=== PATIENT | female | born 1955 | race African-American/Black ===

== ENCOUNTER 2018-01-30 10:40 | Day surgery (SDC) | payer OTHER ==
[2018-01-29 11:31] VITALS: BMI 33.7
--- NOTE | 2018-01-30 06:09 | HP ---
DATE OF ADMISSION: 01/30/2018 HISTORY OF PRESENT ILLNESS: This is a 62-year-old female who comes for a colonoscopy for colon cance r screening. The patient has no specific GI symptoms. There is no family history of colon cancer, b ut however, her mother had and had chemotherapy. ALLERGIES: None. SOCIAL HISTORY: The patient does not smoke or drink alcohol. MEDICAL ILLNESSES: 1. Hypertension. 2. Hyperlipidemia. 3. Osteoporosis. 4. . 5. Tubal ligation. 6. Cholecystectomy. PHYSICAL EXAMINATION: VITAL SIGNS: Pulse is 70, blood pressure 130/70. HEENT: Conjunctivae clear. CARDIOVASCULAR: First and second heart sounds normal. LUNGS: Clear to auscultation. ABDOMEN: Soft to palpate. No organomegaly. No tenderness. No masses. ADMITTING DIAGNOSIS: A 62-year-old female comes for colonoscopy for colon cancer screening.
[2018-01-30] MEDS ORDERED: Lidocaine 1% PF 5 ML VIAL ONE (14:24)
[2018-01-30] MEDS ORDERED: PROPOFOL 200 MG/20 ML VIAL ONE (14:24)
--- NOTE | 2018-01-31 10:26 | OP ---
DATE OF PROCEDURE: 01/30/2018 SURGEON: Ruiz Hernandez M.D. OPERATIVE PROCEDURE: Colonoscopy with polypectomy. PREOPERATIVE DIAGNOSIS: Colon cancer screening. POSTOPERATIVE DIAGNOSES: 1. Sessile descending colon polyp. 2. Hemorrhoids. 3. Scattered diverticulosis all the way to the ascending colon, but wide. PROCEDURE IN DETAIL: The patient was placed on her left lateral position and was given sedation by A nesthesia Department. A rectal exam was done before the scope was advanced into the rectum. No lesi on felt on rectal exam. A Pentax video colonoscope was introduced into the rectum and advanced all t he way to the cecum. The prep was good. The mucosa appeared normal throughout the colon. The appen diceal orifice, ileocecal valve, and cecum, no pathology seen. The ascending colon, hepatic flexure, transverse colon, splenic flexure, descending colon, and sigmoid colon showed mild diverticular dise ase. The sessile descending colon polyp removed with snare cautery with good hemostasis. Rectum josee wed hemorrhoids. DISCHARGE PLANNING: Ms. Mamta Marin is a very pleasant 62-year-old -[place] female referr ed to me for a colonoscopy. DISCHARGE RECOMMENDATIONS: 1. The patient advised to call me if she develops abdominal pain, hematochezia. 2. High-fiber diet. 3. Repeat colonoscopy in 5 years.
== END 2018-01-30 14:10 | disposition home or self-care (01) ==
LOC: SDC 10:40
PROVIDERS: ATTEND Internal Medicine Gastroenterology
PROC: 0DBM8ZX Excision of Descending Colon, Via Natural or Artificial Opening Endoscopic, Diagnostic (ICD-10-PCS; principal; 2018-01-30)
DX: Z12.11 Encounter for screening for malignant neoplasm of colon (principal); K63.5 Polyp of colon; K57.30 Diverticulosis of large intestine without perforation or abscess without bleeding; K64.9 Unspecified hemorrhoids; I10 Essential (primary) hypertension; E78.5 Hyperlipidemia, unspecified; M81.0 Age-related osteoporosis without current pathological fracture; Z91.048 Other nonmedicinal substance allergy status; Z79.899 Other long term (current) drug therapy
CPT/HCPCS: 88305; J2001; J2704

== ENCOUNTER 2018-03-04 16:19 | Outpatient (CLI) | payer OTHER | END 2018-03-04 16:20 | disposition home or self-care (01) | LOC: BICMAMMO 16:19 | DX: Z12.31 Encounter for screening mammogram for malignant neoplasm of breast (principal); N63.20 Unspecified lump in the left breast, unspecified quadrant | CPT/HCPCS: 77067 ==

== ENCOUNTER 2018-03-10 12:52 | Outpatient (CLI) | payer OTHER | END 2018-03-10 12:53 | disposition home or self-care (01) | LOC: BICMAMMO 12:52 | DX: N63.20 Unspecified lump in the left breast, unspecified quadrant (principal) | CPT/HCPCS: G0279 ==

== ENCOUNTER → 2018-03-12 | Day surgery (SDC) | payer OTHER | LOC: BICULT 12:44 | PROC: 0H9U3ZX Drainage of Left Breast, Percutaneous Approach, Diagnostic (ICD-10-PCS; principal; 2018-03-12) | DX: C50.812 Malignant neoplasm of overlapping sites of left female breast (principal); Z91.048 Other nonmedicinal substance allergy status | CPT/HCPCS: 19100; 76942; 88305; 88313; 88341; 88342 ==

== ENCOUNTER 2018-04-15 09:01 | Outpatient (CLI) | payer OTHER ==
[2018-04-15 11:14] LABS: #Basophils 0.1 thou/uL (0.0-0.2); #Eosinphils 0.1 thou/uL (0.0-0.7); #Lymphocytes 2.7 thou/uL (1.20-3.40); #Monocytes 0.3 thou/uL (0.11-0.59); #Neutrophils 3.7 thou/uL (1.40-6.50); %Basophils 1.3 % (0.0-1.0); %Eosinophils 1.2 % (0.0-10.0); %Lymphocytes 39.7 % (21.0-51.0); %Monocytes 4.1 % (0.0-10.0); %Neutrophils 53.8 % (42.0-75.0); Hemoglobin 12.5 g/dL (12.0-16.0); Mean Corpuscular HGB CONC 33.4 g/dL (32.0-36.0); Mean Corpuscular Volume 95.9 fL (78.0-98.0); Mean Platelet Volume 8.6 fL (7.4-10.4); Platelet Count 267 thou/uL (130-400); RBC Distribution Width 13.3 % (11.5-14.5); White Blood Cell (WBC) Count 6.9 thou/uL (4.8-10.8)
[2018-04-15 11:32] LABS: ALT (SGPT) 12 U/L (8-55); AST (SGOT) 14 U/L (5-34); Albumin 4.1 g/dL (3.4-4.8); Alkaline Phosphatase 69 U/L (40-150); Anion Gap 15 mmol/L (10-20); BUN (Urea Nitrogen) 12 mg/dL (9.8-20.1); Bilirubin, Total 0.3 mg/dL (0.2-1.2); Calc. Creatinine Clearance 0 mL/min (70-130); Calcium 9.4 mg/dL (7.8-10.44); Carbon Dioxide 22 mmol/L (23-31); Chloride 108 mmol/L (98-107); Estimated GFR-MDRD 70; Globulin 3.1 g/dL (2.4-3.5); Glucose 89 mg/dL (80-115); Potassium 3.9 mmol/L (3.5-5.1); Protein, Total 7.2 g/dL (6.0-8.3); Sodium 141 mmol/L (136-145)
--- NOTE | 2018-04-15 11:32 | RAD ---
CHEST 2 VIEWS: Date: 04/15/18 HISTORY: Preoperative exam. COMPARISON: None. FINDINGS: Slight elongation of the aorta. Normal cardiac silhouette. Pulmonary vessels and hilum are normal. Co stophrenic angles are clear. No consolidation or mass. No pneumothorax or osseous abnormalities. IMPRESSION: No acute cardiopulmonary process. POS: [facility]
== END 2018-04-15 09:02 | disposition home or self-care (01) ==
LOC: LABBT 09:01
PROVIDERS: ATTEND Specialist
DX: Z01.818 Encounter for other preprocedural examination (principal); C50.912 Malignant neoplasm of unspecified site of left female breast
CPT/HCPCS: 71046; 80053; 85025; 93005; 93010

== ENCOUNTER 2018-04-17 06:54 | Day surgery (SDC) | payer OTHER ==
[2018-04-15 09:51] VITALS: BMI 34.4
--- NOTE | 2018-04-17 13:30 | MMO ---
MAMMOGRAPHIC NEEDLE LOCALIZATION LEFT BREAST MASS: HISTORY: Left breast cancer. TECHNIQUE: After explaining the procedure and answering all questions, the mass and localization clip at the sheldon tral inferior aspect of the left breast was visualized. Sterile technique, buffered local anesthesia , mammographic guidance, and a lateral approach were used to carefully advance a 20 gauge Cardale needl e to lie immediately deep to the mass and clip. A guide wire was placed to hold the position. Final images were marked and sent with the patient for day surgery. The patient tolerated the procedure w ell and was transferred in good condition. IMPRESSION: Technically successful needle localization, left breast mass. POS: [facility]
[2018-04-17] MEDS ORDERED: Lidocaine 1% PF 5 ML VIAL ONE (13:50)
[2018-04-17] MEDS ORDERED: PROPOFOL 200 MG/20 ML VIAL ONE (13:50)
[2018-04-17] MEDS ORDERED: ePHEDrine/0.9% NaCl/PF SYRINGE 50 mg/10 ml ONE (13:50)
[2018-04-17] MEDS ORDERED: Dexamethasone 20 MG/5 ML VIAL ONE (13:50)
[2018-04-17] MEDS ORDERED: PHENYLEPHRINE-NS 100 MCG/ML 10 ML SYRINGE ONE (13:50)
[2018-04-17] MEDS ORDERED: Ondansetron HCl/PF 4 MG/2 ML Vial ONE (13:50)
[2018-04-17] MEDS ORDERED: CEFAZOLIN/Water 2 GM/20 ML SYRINGE ONE (13:53)
[2018-04-17] MEDS ORDERED: Ketorolac Tromethamine 30 MG/ML VIAL ONE (13:53)
[2018-04-17] MEDS ORDERED: Scopolamine 1.5 mg/72 hour Patch ONE (13:53)
[2018-04-17] MEDS ORDERED: Midazolam HCl 2 mg/2 ml Vial ONE ×2 (14:33→16:54)
--- NOTE | 2018-04-17 15:50 | NM ---
LYMPHOSCINTIGRAPHY LEFT BREAST: HISTORY: Left breast cancer. FINDINGS: After explaining the procedure and answering all questions, the periareolar skin of the left breast w as cleansed with alcohol. A total volume of 1 mL containing 400 mcg technetium 99m filtered sulfur c olloid was carefully injected into the dermis at the 12 o'clock, 3 o'clock, 6 o'clock, and 9 o'clock periareolar positions of the left breast. Imaging was performed. Imaging carried out to four hours shows no accumulation of radiotracer at the left axilla. The patie nt was sent for day surgery. IMPRESSION: Nonvisualization of sentinel lymph node at four hours after lymphoscintigraphy injection left breast. POS: [facility]
[2018-04-17] MEDS ORDERED: Lidocaine 2% 10 ML INJ ONE (16:34)
[2018-04-17] MEDS ORDERED: Bupivacaine/Epinephrine 0.25% 30 ML VIAL ONE (16:34)
[2018-04-17] MEDS ORDERED: Bupivacaine HCl 0.5%/Epinephrine 1:200,000/PF 30 ml Vial ONE (16:34)
[2018-04-17] MEDS ORDERED: Isosulfan Blue 50 MG/5 ML VIAL ONE (16:34)
[2018-04-17] MEDS ORDERED: Fentanyl 100 MCG/2 ML VIAL ONE ×2 (16:54→18:23)
--- NOTE | 2018-04-17 23:42 | OP ---
DATE OF PROCEDURE: 04/17/2018 PREOPERATIVE DIAGNOSIS: Left breast cancer. An 8 mm focus by imaging criteria. Hormone receptor po sitive, HER-2 negative. Lymphoscintigraphy unsuccessful. POSTOPERATIVE DIAGNOSIS: Left breast cancer, 8 mm focus of a mammography by imaging criteria hormone receptor positive, HER-2 negative lymphoscintigraphy unsuccessful. PROCEDURE: Mammographically needle-localized excisional biopsy. An 8 mm focus retro lower areolar d eep, slightly inferior left breast cancer (partial mastectomy), Lymphazurin blue injection, sentinel node biopsy, touch prep was negative. ANESTHESIA: General. Local 0.5% Marcaine with epinephrine, 30 mL, mixed with 0.25% Marcaine with ep inephrine, 30 mL, mixed with 2% Xylocaine, 10 mL total volume used. PROCEDURE IN DETAIL: Patient was taken to the operating room where under general anesthesia, left br east lateral areolar border area prepared with alcohol. Lymphazurin blue injected. Lymphoscintigrap hy negative for localization of sentinel node. The needle localization performed with localizing wir e entering the inferior mammary crease, directed cephalad. Tip retroareolar inferior half, deep. Left breast prepared with ChloraPrep, draped in routine fashion. Incision made was made in the lower left axillary hairline, carried through skin, subcutaneous tissue and deep fascia and Neoprobe use, but corresponding unsuccessful lymphoscintigraphy, no increased signal was appreciated. Lymphazurin blue lymphatic visualization appreciating a small sentinel node, colored blue, was removed. Neoprobe did reveal some increased counts of 5-7 relative to a background counts of 0, but this is nominal. [place] node submitted to pathology. Touch prep negative for metastasis. Hemostasis gained with th e cautery. Subcutaneous tissues approximated with 3-0 Monocryl, skin with subdermal 4-0 Monocryl. L ocal anesthetic infiltrated into the skin and subcutaneous tissue about the wound, infiltrated in the biopsy cavity for postoperative pain control. Dermabond applied. Inferior incision made in the left breast, carried down the skin and subcutaneous tissue and flap dis sected free towards the inferior crease with a localizing wire pulled back into the wound and a core breast tissue dissected free for partial mastectomy. Wide local excision of the breast cancer was pa lpable and had grossly negative margins well with adequate margins. Margins marked appropriately wit h sutures labeled and specimen submitted to Pathology. Hemostasis gained with the cautery. Subcutan eous tissues approximated with 3-0 Monocryl, skin with subdermal 4-0 Monocryl, and local anesthetic i nfiltrated into the skin and subcutaneous tissue and then infiltrated the biopsy cavity for postopera tive pain control. Patient tolerated the procedure well.
--- NOTE | 2018-04-20 09:38 | MMO ---
SURGICAL SPECIMEN MAMMOGRAPHY: Date 04/17/18 HISTORY: Breast cancer. FINDINGS/IMPRESSION: Mammographic evaluation of surgical specimen obtained by Dr. Poe shows localization clip and guide wire to overlie the hyperdense lesion centered within the surgical specimen. Clip is centered at the H6 location on the grid. POS: [facility]
== END 2018-04-17 19:38 | disposition home or self-care (01) ==
LOC: SDC 06:54
PROVIDERS: ATTEND Specialist
PROC: 07B60ZX Excision of Left Axillary Lymphatic, Open Approach, Diagnostic (ICD-10-PCS; principal; 2018-04-17)
PROC: 0HBU0ZZ Excision of Left Breast, Open Approach (ICD-10-PCS; principal; 2018-04-17)
DX: C50.912 Malignant neoplasm of unspecified site of left female breast (principal); I10 Essential (primary) hypertension; E78.00 Pure hypercholesterolemia, unspecified; M81.0 Age-related osteoporosis without current pathological fracture; Z79.899 Other long term (current) drug therapy; Z91.048 Other nonmedicinal substance allergy status; Z17.0 Estrogen receptor positive status [ER+]
CPT/HCPCS: 19281; 76098; 78195; 88307; 88331; 88341; 88342; A9541; J0131; J0670; J1100; J1885; J2001; J2250; J2405; J2704; J3010; Q9968

== ENCOUNTER 2018-06-15 09:38 | Outpatient (CLI) | payer OTHER ==
--- NOTE | 2018-06-15 12:07 | RAD ---
RADIOGRAPH LEFT ELBOW TWO VIEWS: Date: 06-15-18 History: 63-year-old female with left elbow pain. No recent trauma. FINDINGS: Joint spaces are maintained. Small osteophyte at coronoid process. No osteophytes at capitelloradial articulation. No fracture or destructive osseous lesion. IMPRESSION: 1. Mild osteoarthrosis. 2. No major pathology identified. POS: [facility]
--- NOTE | 2018-06-15 12:15 | RAD ---
RADIOGRAPH CERVICAL SPINE 2 VIEWS: DATE: 06/15/18 HISTORY: 63-year-old female with chronic cervicalgia. FINDINGS: Vertebral body heights are maintained. Alignment is normal. No severe disc space narrowing at any lev el. Small posterior end plate marginal osteophytes encroach upon the anterior aspect of the spinal ca nal at C3-4, C4-5, and C5-6. Small to moderate sized anterior end plate osteophytes protrude into the prevertebral space at those same levels. Mild bilateral degenerative facet changes. Odontoid process and atlantoaxial joint are not well evaluated because there is no open-mouth view. There does seem t o be irregularity and sclerosis in that region on the lateral view. IMPRESSION: 1. Mild to moderate cervical spondylosis consisting of multilevel mild to moderate degenerative disc disease. 2. Degenerative changes at atlanto-odontoid junction, incompletely imaged. MICHAEL [] POS: [facility]
== END 2018-06-15 09:39 | disposition home or self-care (01) ==
LOC: BICRAD 09:38
PROVIDERS: ATTEND Physician Assistant
DX: M54.2 Cervicalgia (principal); M25.522 Pain in left elbow; M47.892 Other spondylosis, cervical region; M50.30 Other cervical disc degeneration, unspecified cervical region; M19.022 Primary osteoarthritis, left elbow
CPT/HCPCS: 72040

== ENCOUNTER 2019-03-11 13:46 | Outpatient (CLI) | payer OTHER ==
--- NOTE | 2019-03-11 14:18 | MMO ---
Bilateral MAMMO Bilat Diag [facility]DI+JAZZ. CLINICAL HISTORY: Patient is 63 years old and is seen for diagnostic exam. The patient has the following family history of breast cancer: 2 cousin females. The patient has a history of malignant (generic) in the left breast. The patient has a history of left Ultrasound Guided Core Biopsy in 2018 and left Lumpectomy - malignant. VIEWS: The views performed were: bilateral craniocaudal with tomosynthesis; bilateral mediolateral oblique with tomosynthesis; and bilateral mediolateral with tomosynthesis. FILMS COMPARED: The present examination has been compared to prior imaging studies performed at [facility] on 09/11/2012, and at [facility] on 02/03/2015, 12/26/2015 and 03/10/2018. MAMMOGRAM FINDINGS: There are scattered fibroglandular densities. Finding 1: Benign calcifications are noted bilaterally. Finding 2: There are postop and XRT changes in the left breast. IMPRESSION: FINDING 1: FINDINGS IN BOTH BREASTS ARE BENIGN. FINDING 2: FINDING IN THE LEFT BREAST IS PROBABLY BENIGN. FOLLOW-UP IN 6 MONTHS IS RECOMMENDED. THE RESULTS OF THIS EXAM WERE SENT TO THE PATIENT. ACR BI-RADS Category 3 - Probably benign finding - short interval follow-up suggested. [facility] will notify the patient of the need for additional imaging services. MAMMOGRAPHY NOTE: 1. A negative mammogram report should not delay a biopsy if a dominant of clinically suspicious mass is present. 2. Approximately 10% to 15% of breast cancers are not detected by mammography. 3. Adenosis and dense breasts may obscure an underlying neoplasm.
== END 2019-03-11 13:47 | disposition home or self-care (01) ==
LOC: BICMAMMO 13:46
PROVIDERS: ATTEND Internal Medicine Hematology & Oncology
DX: Z08 Encounter for follow-up examination after completed treatment for malignant neoplasm (principal); Z85.3 Personal history of malignant neoplasm of breast; Z80.3 Family history of malignant neoplasm of breast; Z98.890 Other specified postprocedural states
CPT/HCPCS: 77066; G0279

== ENCOUNTER 2019-09-13 09:13 | Outpatient (CLI) | payer OTHER ==
--- NOTE | 2019-09-13 09:43 | MMO ---
Left Breast MAMMO Unilat Diag DDI LT+JAZZ. CLINICAL HISTORY: Patient is 64 years old and is seen for diagnostic exam. The patient has the following family history of breast cancer: 2 cousin females. The patient has a history of malignant (generic) in the left breast. The patient has a history of left Ultrasound Guided Core Biopsy in 2018 and left Lumpectomy - malignant. VIEWS: The views performed were: left craniocaudal with tomosynthesis; left mediolateral oblique with tomosynthesis; and left mediolateral with tomosynthesis. FILMS COMPARED: The present examination has been compared to prior imaging studies performed at [facility] on 02/03/2015, 12/26/2015, 03/10/2018 and 03/11/2019. This study has been interpreted with the assistance of computer-aided detection. MAMMOGRAM FINDINGS: There are scattered fibroglandular densities. There are benign appearing calcifications in the left breast. There are stable post op and XRT changes. There are no suspicious masses, suspicious calcifications, or new areas of architectural distortion. IMPRESSION: THERE IS NO MAMMOGRAPHIC EVIDENCE OF MALIGNANCY. A ROUTINE FOLLOW-UP MAMMOGRAM IN 1 YEAR IS RECOMMENDED. THE RESULTS OF THIS EXAM WERE SENT TO THE PATIENT. ACR BI-RADS Category 2 - Benign finding MAMMOGRAPHY NOTE: 1. A negative mammogram report should not delay a biopsy if a dominant of clinically suspicious mass is present. 2. Approximately 10% to 15% of breast cancers are not detected by mammography. 3. Adenosis and dense breasts may obscure an underlying neoplasm. Reported by: ROB FARR MD Electonically Signed: [id number]
== END 2019-09-13 09:14 | disposition home or self-care (01) ==
LOC: BICMAMMO 09:13
PROVIDERS: ATTEND Internal Medicine Hematology & Oncology
DX: Z08 Encounter for follow-up examination after completed treatment for malignant neoplasm (principal); Z85.3 Personal history of malignant neoplasm of breast; Z80.3 Family history of malignant neoplasm of breast
CPT/HCPCS: G0279

== ENCOUNTER 2023-06-13 06:52 | Emergency (ER) | payer MEDICARE ==
[2023-06-13] MEDS ORDERED: Ketorolac Tromethamine 30 MG/ML VIAL ONE (07:30)
[2023-06-13] MEDS ORDERED: Lidocaine 1% PF 5 ML VIAL ONE (09:47)
== END 2023-06-13 10:40 | disposition home or self-care (01) ==
LOC: ERS 06:52
DX: S62.337A Displaced fracture of neck of fifth metacarpal bone, left hand, initial encounter for closed fracture (principal); X50.0XXA Overexertion from strenuous movement or load, initial encounter
CPT/HCPCS: 26605; 96374; J1885